=== PATIENT | female | born 2005 | race Two or more races ===

== ENCOUNTER 2025-05-31 16:12 | Emergency (ER) | payer OTHER ==
[~2025-05-31] VITALS: Ht 162.6 cm; Wt 54.4 kg
[2025-05-31 16:57] VITALS: BP 121/70; O2SAT 100
[2025-05-31 18:07] LABS: BASO % 0.3 % (0.1-1.2); EOS # 0.01 (0.04-0.54); EOS % 0.1 % (0.7-7.0); HEMATOCRIT 39.3 % (34.1-44.9); HEMOGLOBIN 12.9 g/dL (11.2-15.7); LYMPH % 7.2 % (19.3-53.1); MEAN CORPUSCULAR HEMOGLOBIN 26.5 pg (25.6-32.2); MONO # 0.49 (0.24-0.82); MONO % 3.9 % (4.7-12.5); NEUT # 11.09 (1.56-6.13); NEUT % 88.3 % (34.0-71.1); PLATELET COUNT 270 K/uL (163-369); RED BLOOD COUNT 4.87 M/uL (3.93-5.22); RED CELL DISTRIBUTION WIDTH 13.2 % (11.6-14.4)
[2025-05-31 18:31] LABS: URINE APPEARANCE Clear; URINE BILIRRUBIN Negative (NEGATIVE); URINE BLOOD Negative; URINE COLOR Yellow; URINE GLUCOSE Negative (NEGATIVE); URINE KETONE Trace (NEGATIVE); URINE LEUKOCYTE Negative; URINE NITRATE Negative; URINE PROTEIN Negative (NEGATIVE); URINE UROBILINOGEN 0.2 E.U./dl
[2025-05-31 18:35] LABS: URINE BACTERIA 782.1 uL (0.0-1933); URINE EPITHELIAL CELLS 4.3 uL (0.0-38.8); URINE RBC 4.9 uL (0.0-20.8); URINE WBC 2.4 uL (0.0-23.2)
[2025-05-31 18:41] LABS: COCAINE NEGATIVE (NEGATIVE); METHADONE NEGATIVE (NEGATIVE); OPIATES NEGATIVE (NEGATIVE); THC ( Cannabinoids) NEGATIVE (NEGATIVE)
[2025-05-31 18:50] LABS: ALBUMIN 4.6 gm/dL (3.4-5.0); BILIRUBIN TOTAL 0.48 mg/dL (0.3-1.2); CALCIUM 9.6 mg/dL (8.5-10.1); CREATININE SERUM 0.72 mg/dL (0.55-1.02); GFR 103.27; GLOBULINA 3.1 G/DL (2.4-3.5); POTASSIUM 3.81 mEq/L (3.5-5.1); TOTAL PROTEIN 7.7 gm/dL (6.4-8.2)
== END 2025-05-31 22:59 | disposition home or self-care (01) ==
LOC: ER 16:12 → EMR PED 16:12
DX: S09.8XXA Other specified injuries of head, initial encounter (principal); W19.XXXA Unspecified fall, initial encounter; Y93.89 Activity, other specified; Y92.89 Other specified places as the place of occurrence of the external cause; Y99.8 Other external cause status; G40.909 Epilepsy, unspecified, not intractable, without status epilepticus; R42 Dizziness and giddiness